=== PATIENT | female | born 1995 | race Two or more races ===

== ENCOUNTER → 2025-04-14 | Outpatient (CLI) | payer MEDICAID ==
--- NOTE | 2025-04-14 12:12 | XR ---
EXAMINATION TYPE: XR chest 2V DATE OF EXAM: 04/14/2025 11:56 AM COMPARISON: None TECHNIQUE: XR chest 2V Frontal and lateral views of the chest. CLINICAL INDICATION:Female, 29 years old with history of Z00.00 N92.6 R06.02; FINDINGS: Lungs/Pleura: There is no evidence of pleural effusion, focal consolidation, or pneumothorax. Pulmonary vascularity: Central pulmonary vascular congestion. Heart/mediastinum: Cardiomediastinal silhouette is unremarkable. Musculoskeletal: No acute osseous pathology. IMPRESSION: No acute cardiopulmonary disease/process. [facility] Tenorio, , 04/14/2025 12:09 PM
[2025-04-14 12:26] LABS: Basophils # (A) 0.03 10*3/uL (0.00-0.10); Basophils % (A) 0.5 %; Eosinophils # (A) 0.06 10*3/uL (0.04-0.35); Eosinophils % (A) 1.1 %; HCT 38.1 % (37.2-46.3); HGB 12.6 g/dL (12.0-15.0); Lymphocytes # (A) 1.18 10*3/uL (0.90-5.00); Lymphocytes % (A) 21.1 %; MCH 27.8 pg (27.0-32.0); MCHC 33.1 g/dL (32.0-37.0); MCV 83.9 fL (80.0-97.0); Monocytes # (A) 0.42 10*3/uL (0.20-1.00); Monocytes % (A) 7.5 %; Neutrophils # (A) 3.90 10*3/uL (1.80-7.70); Neutrophils % (A) 69.6 %; Platelet Count 213 10*3/uL (140-440); RBC 4.54 10*6/uL (4.10-5.20); RDW 14.3 % (11.5-14.5); WBC 5.60 10*3/uL (4.50-10.00)
[2025-04-14 16:27] LABS: ALT 6 U/L (8-44); AST 18 U/L (13-35); Albumin 4.4 g/dL (3.8-4.9); Albumin/Globulin Ratio 1.63 Ratio (1.60-3.17); Alkaline Phosphatase 79 U/L (41-126); Anion Gap 9.80 mmol/L (4.00-12.00); BUN/Creat Ratio 15.00 Ratio (12.00-20.00); Blood Urea Nitrogen 10.5 mg/dL (9.0-27.0); Calcium 9.4 mg/dL (8.7-10.3); Carbon Dioxide 25.2 mmol/L (21.6-31.8); Chloride 104 mmol/L (96-109); Cholesterol 145.00 mg/dL (0.00-200.00); Globulin 2.7 g/dL (1.6-3.3); Glucose 95 mg/dL (70-110); HCG,Quantitative Serum <3.0 mIU/mL (0.0-6.0); HDL Cholesterol 39.20 mg/dL (40.00-60.00); LDL Cholesterol,Calculated 96.3 mg/dL (0.0-131.0); Potassium 4.1 mmol/L (3.5-5.5); Sodium 139 mmol/L (135-145); Total Protein 7.1 g/dL (6.2-8.2); Triglycerides 47.40 mg/dL (0.00-149.00); VLDL Calculation 9.48 mg/dL (5.00-40.00)
== END | disposition home or self-care (01) ==
LOC: LABWHC1 11:09
PROVIDERS: ATTEND Internal Medicine
DX: Z00.00 Encounter for general adult medical examination without abnormal findings (principal); N92.6 Irregular menstruation, unspecified; R06.02 Shortness of breath
CPT/HCPCS: 36415; 71046; 80053; 80061; 84443; 84702; 85025